=== PATIENT | female | born 1965 | race Caucasian/White ===

== ENCOUNTER 2018-09-23 07:22 | Day surgery (SDC) | payer BC, OTHER ==
[~2018-09-23] VITALS: Ht 160 cm; Wt 122.0 kg
[~2018-09-23 07:22] MED LIST: LEVO25CA PO
--- NOTE | 2018-09-23 07:55 | PREAC ---
Date/Time of Note Date/Time of Note DATE: 09/23/18 TIME: 07:53 Anesthesia Eval and Record Evaluation Time Pre-Procedure Interview DATE: 09/23/18 TIME: 07:53 Age 53 Sex female NPO: 8 hrs Preoperative diagnosis nausea, history of colon polyps Planned procedure EGD, colonoscopy Past Medical History Past Medical History: Includes Cardio: HTN Endo: Diabetes, Hypothyroid GI: Morbid obesity Surgery & Anesthesia Issues No known issue Meds Anticoagulation: No Beta Dannie within 24 hr: Yes Reason Beta Dannie not given: Bradycarida, Hypotension Reported Medications Levothyroxine Sodium (Tirosint) 25 Mcg Capsule, 25 MCG PO DAILY 06/28/11 Meds reviewed: Yes Allergies Coded Allergies: No Known Allergy (Unverified , 06/28/11) Allergies Reviewed: Yes Labs/Studies Labs Reviewed: Reviewed by anesthesiologist test: N/A Pre-procedure Exam Airway: Adequate mouth opening, Adequate thyromental dist Mallampati: Mallampati II Teeth: Normal Lung: Normal Heart: Normal ASA Physical Status ASA physical status: 3 Emergency: None Planned Anesthetic General/MAC: Mask Planned Pain Management Parenteral pain med Pre-operative Attestations Prior to commencing anesthesia and surgery, the patient was re-evaluated, there was verification of: *The patient's identity *The results of appropriate recent lab work and preoperative vital signs *The above evaluation not changing prior to induction *Anesthetic plan, risk benefits, alternative and complications discussed with patient/family; questions answered; patient/family understands, accepts and wishes to proceed. JIMMY WOODWARD MD Sep 23, 2018 07:55
[2018-09-23 08:04] VITALS: Ht 160 cm; Wt 122.0 kg
[2018-09-23] MEDS ORDERED: CYMBALTA (08:09)
[2018-09-23] MEDS ORDERED: METOPROLOL (08:09)
[2018-09-23] MEDS ORDERED: IBUPROFEN (08:09)
[2018-09-23] MEDS ORDERED: METFORMIN (08:09)
[2018-09-23] MEDS ORDERED: ONDANSETRON 4 MG INJ IV PRN (08:30)
[2018-09-23] MEDS ORDERED: LABETALOL HCL 20MG INJ IV PRN (08:30)
[2018-09-23] MEDS ORDERED: hydrALAzine 20 MG INJ IV PRN (08:30)
[2018-09-23] MEDS ORDERED: HYDROmorphONE 1 MG/5 ML IV SYRINGE IV PRN (08:30)
[2018-09-23 08:32] VITALS: BP 118/56; PULSE 96; RESP 18
[2018-09-23] MEDS ORDERED: LIDOCAINE 2% (SDV) 5 ML INJ ONE (08:35)
[2018-09-23] MEDS ORDERED: PROPOFOL 40 ML ONE (08:35)
[2018-09-23] MEDS ORDERED: MIDAZOLAM 1 MG/ML 2 ML INJ ONE (08:42)
[2018-09-23] MEDS ORDERED: PROPOFOL 20 ML ONE (09:09)
--- NOTE | 2018-09-23 09:19 | PAC ---
Date/Time of Note Date/Time of Note DATE: 09/23/18 TIME: 09:19 Post-Anesthesia Notes Post-Anesthesia Note Last documented vital signs Vital Signs Date Temp Pulse Resp B/P (MAP) Pulse Ox O2 O2 Flow FiO2 Time Delivery Rate 09/23/18 98.4 96 18 118/56 96 Room Air 08:32 (76) Activity: WNL Respiratory function: WNL Cardiovascular function: WNL Mental status: Baseline Pain reasonably controlled: Yes Hydration appropriate: Yes Nausea/Vomiting absent: Yes Comments BP: 117/60 HR: 76 RR: 15 T: 98 SaO2: 97% JIMMY WOODWARD MD Sep 23, 2018 09:19
[2018-09-23 09:59] VITALS: BP 124/71; RESP 18
== END 2018-09-23 10:42 | disposition home or self-care (01) ==
LOC: GIL 07:22
PROVIDERS: ATTEND Internal Medicine Gastroenterology
DX: K29.70 Gastritis, unspecified, without bleeding (principal); K57.30 Diverticulosis of large intestine without perforation or abscess without bleeding; D12.0 Benign neoplasm of cecum; K20.8 Other esophagitis; I10 Essential (primary) hypertension; E11.9 Type 2 diabetes mellitus without complications; E03.9 Hypothyroidism, unspecified
CPT/HCPCS: 43239; 45380; 82962; 88305; J2250; Z7610